=== PATIENT | male | born 2000 | race Caucasian/White ===

== ENCOUNTER → 2021-07-03 | Outpatient (CLI) | payer OTHER | LOC: WCC 08:22 | DX: L89.623 Pressure ulcer of left heel, stage 3 (principal); Z72.0 Tobacco use; W34.00XS Accidental discharge from unspecified firearms or gun, sequela; L08.9 Local infection of the skin and subcutaneous tissue, unspecified ==

== ENCOUNTER → 2021-08-15 | Outpatient (CLI) | payer OTHER | LOC: WCC 08:31 | DX: L89.623 Pressure ulcer of left heel, stage 3 (principal); L08.9 Local infection of the skin and subcutaneous tissue, unspecified; Z91.19 Patient's noncompliance with other medical treatment and regimen; W34.00XS Accidental discharge from unspecified firearms or gun, sequela ==

== ENCOUNTER → 2021-08-20 | Outpatient (CLI) | payer OTHER | LOC: WCC 09:09 | DX: L89.623 Pressure ulcer of left heel, stage 3 (principal); L08.9 Local infection of the skin and subcutaneous tissue, unspecified; Z72.0 Tobacco use; Z91.19 Patient's noncompliance with other medical treatment and regimen; W34.00XA Accidental discharge from unspecified firearms or gun, initial encounter; Z79.2 Long term (current) use of antibiotics ==

== ENCOUNTER → 2021-08-29 | Outpatient (CLI) | payer OTHER ==
[~2021-08-29] VITALS: Ht 190.5 cm; Wt 86.2 kg
== END ==
LOC: OPSV 07:00
DX: L08.9 Local infection of the skin and subcutaneous tissue, unspecified (principal); L89.623 Pressure ulcer of left heel, stage 3; Z72.0 Tobacco use; W34.00XS Accidental discharge from unspecified firearms or gun, sequela; Z91.19 Patient's noncompliance with other medical treatment and regimen
CPT/HCPCS: 96365; J0875; J7060

== ENCOUNTER → 2021-08-29 | Outpatient (CLI) | payer OTHER | END | disposition home or self-care (01) | LOC: WCC 07:38 | DX: L89.623 Pressure ulcer of left heel, stage 3 (principal); L08.9 Local infection of the skin and subcutaneous tissue, unspecified; Z91.19 Patient's noncompliance with other medical treatment and regimen; F17.200 Nicotine dependence, unspecified, uncomplicated ==

== ENCOUNTER → 2021-09-03 | Outpatient (CLI) | payer OTHER | END | disposition home or self-care (01) | LOC: WCC 08:17 | DX: L89.623 Pressure ulcer of left heel, stage 3 (principal); F17.290 Nicotine dependence, other tobacco product, uncomplicated; Z91.19 Patient's noncompliance with other medical treatment and regimen ==

== ENCOUNTER → 2021-09-12 | Outpatient (CLI) | payer OTHER | LOC: WCC 08:17 | DX: L89.624 Pressure ulcer of left heel, stage 4 (principal); L08.9 Local infection of the skin and subcutaneous tissue, unspecified; Z91.19 Patient's noncompliance with other medical treatment and regimen; Z72.0 Tobacco use; Z79.899 Other long term (current) drug therapy ==

== ENCOUNTER → 2021-09-17 | Outpatient (CLI) | payer OTHER ==
[2021-09-17 15:52] LABS: HEMOGLOBIN 15.6 gm/dl (14.0-17.5); RED BLOOD COUNT 5.12 M/UL (4.20-5.50); WHITE BLOOD COUNT 8.1 K/UL (4.5-11.0)
[2021-09-17 16:22] LABS: BUN/CREATININE RATIO 9 (0-10)
== END ==
LOC: OPSV 14:00
PROVIDERS: Nurse Practitioner Family
DX: L08.9 Local infection of the skin and subcutaneous tissue, unspecified (principal); M86.8X7 Other osteomyelitis, ankle and foot; L89.623 Pressure ulcer of left heel, stage 3; W34.00XS Accidental discharge from unspecified firearms or gun, sequela; Z72.0 Tobacco use; Z91.19 Patient's noncompliance with other medical treatment and regimen
CPT/HCPCS: 36415; 80053; 85025; 86140; 87070; 87205

== ENCOUNTER → 2021-10-24 | Outpatient (CLI) | payer OTHER | END | disposition home or self-care (01) | LOC: WCC 09:21 | DX: L89.624 Pressure ulcer of left heel, stage 4 (principal); L08.9 Local infection of the skin and subcutaneous tissue, unspecified; W34.00XD Accidental discharge from unspecified firearms or gun, subsequent encounter; F17.200 Nicotine dependence, unspecified, uncomplicated; Z91.19 Patient's noncompliance with other medical treatment and regimen; Z79.2 Long term (current) use of antibiotics; Z79.899 Other long term (current) drug therapy | CPT/HCPCS: 87070; 87077; 87186; 87205 ==